=== PATIENT | female | born 1995 | race Caucasian/White ===

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

== ENCOUNTER → 2017-02-16 | Day surgery (SDC) | payer OTHER ==
[2017-02-12 14:17] VITALS: Ht 162.6 cm; Wt 55.9 kg
[~2017-02-16] VITALS: Ht 162.6 cm; Wt 55.9 kg
[~2017-02-16] MED LIST changes: +BUSP15TA70 PO; +ETON1IMP2 SC; +LIDOCAINE HCL 2% 2 ML VIAL (20MG/ML) ONE; -METH30CA PO; +METH60CA2 PO; +MIDAZOLAM HCL 1 MG/ML 2ML VIAL ONE; +ONDANSETRON INJ 2 MG/ML 2 ML VIAL ONE; -OXYC1TAB3 PO; +PROPOFOL IV EMULSION 10 MG/ML 20 ML VIAL IV ONE; +SODIUM CHLORIDE 0.9% 500ML 500 ML IV ONE
--- NOTE | 2017-02-16 14:50 | Endo History and Physical ---
History & Physical Date of Service: Feb 16, 2017. Chief Complaint: rectal bleeding,change in bowel habits Referring Physician: Dr. howard History of Present Illness 21 yo CF who presents for colonoscopy secondary to rectal bleeding and change in bowel habits. Past Surgical History Hx Cardiac Surgery: No Hx Internal Defibrillator: No Hx Pacemaker: No Hx Abdominal Surgery: No Hx of Implantable Prosthesis: No Hx Post-Op Nausea and Vomiting: No Hx Cancer Surgery: No Hx Thoracic Surgery: No Hx Orthopedic: No Hx Urinary Tract Surgery: No Family History IBD Social History Smoking Status: Never Smoker Hx Substance Use: No Hx Alcohol Use: No Allergies Coded Allergies: No Known Allergies (Verified , 02/16/17) Current Medications Reported Home Medications Medications Dose Route/Sig Max Daily Dose Days Date Category Dose Instructions Nexplanon (Etonogestrel) 68 Mg Imp 1 Dose SC CONTINOUS 02/12/17 Reported INSERTED IN LT UPPER ARM Methylphenidate HCl ER (Methylphenidate HCl) 60 Mg Cap 1 Cap PO QAM 02/12/17 Reported Buspar (Buspirone Hcl) 15 Mg Tab 15 Mg PO BID 12/03/16 Reported Klonopin (Clonazepam) 0.5 Mg Tab 0.5 Mg PO TID 09/25/16 Reported Cymbalta (Duloxetine HCl) 60 Mg Cap 120 Mg PO QPM 09/25/16 Reported Ritalin (Methylphenidate HCl) 20 Mg Tab 20 Mg PO AFTERNOON 04/09/16 Reported Vital Signs Weight (Kilograms): 55.91 Height (Feet): 5 Height (Inches): 4 Date Time Temp Pulse Resp B/P (MAP) Pulse Ox O2 Delivery O2 Flow Rate FiO2 02/16/17 14:20 36.9 81 16 122/80 (94) 100 Room Air Physical Exam General Appearance: WD/WN, no apparent distress Respiratory/Chest: Auscultation: breath sounds normal Cardiovascular: Heart Auscultation: RRR Abdomen: Bowel Sounds: normal Inspection & Palpation: soft, non-distended, no tenderness, guarding & rebound Assessment and Plan Assessment: 21 yo CF who presents for colonoscopy secondary to rectal bleeding and change in bowel habits. Plan: Proceed with colonoscopy.
--- NOTE | 2017-02-16 15:41 | Discharge Instructions ---
Endoscopy Patient Instructions Date / Procedure(s) Performed Feb 16, 2017. Colonoscopy Allergy Information Coded Allergies: No Known Allergies (Verified , 02/16/17) Discharge Date / Findings Feb 16, 2017. Internal hemorrhoids Medication Instructions OK to resume all medications today as prescribed Reported Home Medications Medications Dose Route/Sig Max Daily Dose Days Date Category Dose Instructions Nexplanon (Etonogestrel) 68 Mg Imp 1 Dose SC CONTINOUS 02/12/17 Reported INSERTED IN LT UPPER ARM Methylphenidate HCl ER (Methylphenidate HCl) 60 Mg Cap 1 Cap PO QAM 02/12/17 Reported Buspar (Buspirone Hcl) 15 Mg Tab 15 Mg PO BID 12/03/16 Reported Klonopin (Clonazepam) 0.5 Mg Tab 0.5 Mg PO TID 09/25/16 Reported Cymbalta (Duloxetine HCl) 60 Mg Cap 120 Mg PO QPM 09/25/16 Reported Ritalin (Methylphenidate HCl) 20 Mg Tab 20 Mg PO AFTERNOON 04/09/16 Reported Provider Instructions Activity Restrictions - No exercising or heavy lifting for 24 hours. - Do not drink alcohol the day of the procedure. - Do not drive a car or operate machinery until the day after the procedure. - Do not make any important decisions or sign important papers in 24 hours after the procedure. Following Day: - Return to full activity which may include returning to work/school. Diet Start your diet with liquids and light foods (jello, soup, juice, toast). Then eat your usual diet if not nauseated. Treatment For Common After Affects For mild abdominal pain, bloating, or excessive gas: - Rest - Eat lightly - Lie on right side Follow-Up Information Follow-up with Dr. howard as scheduled Anesthesia Information What You Should Know You have had a procedure that required some medicine to reduce anxiety and discomfort. This treatment is called moderate sedation. After receiving the treatment, you may be sleepy, but you will be able to breathe on your own. The effects of the treatment may last for several hours. Follow these instructions along with Activity/Diet recommendations noted above: * Do NOT do anything where dizziness or clumsiness would be dangerous. * Rest quietly at home today, then you can be up and about tomorrow. * Have a responsible person stay with you the rest of today. * You may have had an I.V. today. If so, you may take the dressing off later today. Recommendations Call your doctor if: * Trouble breathing * Continuous vomiting for more than 24 hours * Temperature above 101 degrees * Severe abdominal pain or bloating * Pain not relieved by pain medicine ordered * There is increased drainage or redness from any incision * A large amount of rectal bleeding greater than 2-3 tablespoons. (If you had a polyp/s removed or have hemorrhoids, a small amount of blood - from the rectum is to be expected.) * You have any unanswered questions or concerns. IN THE EVENT OF A SERIOUS EMERGENCY, GO TO THE NEAREST EMERGENCY ROOM Your discharge instructions were prepared by provider Rudy Neves. Patient Instructions Signature Page Roslyn Terry Patient (or Guardian) Signature/Date: I have read and understand the instructions given to me by my caregivers. Caregiver/RN/Doctor Signature/Date: The above-named patient and/or guardian has received patient instructions on this date. + Original Patient Signature Page (only) stays with chart. Please make copy for patient.
--- NOTE | 2017-02-16 15:44 | GI REPORT ---
Procedure Date: 02/16/2017 3:18 PM Procedure: Colonoscopy Indications: Rectal bleeding, Change in bowel habits Medicines: Monitored Anesthesia Care Complications: No immediate complications. Estimated Blood Loss: Estimated blood loss: none. Procedure: Pre-Anesthesia Assessment: - Prior to the procedure, a History and Physical was performed, and patient medications and allergies were reviewed. The patient's tolerance of previous anesthesia was also reviewed. The risks and benefits of the procedure and the sedation options and risks were discussed with the patient. All questions were answered, and informed consent was obtained. Prior Anticoagulants: The patient has taken no previous anticoagulant or antiplatelet agents. ASA Grade Assessment: II - A patient with mild systemic disease. After reviewing the risks and benefits, the patient was deemed in satisfactory condition to undergo the procedure. After I obtained informed consent, the scope was passed under direct vision. Throughout the procedure, the patient's blood pressure, pulse, and oxygen saturations were monitored continuously. The scope was introduced through the anus and advanced to the terminal ileum. The colonoscopy was performed without difficulty. The patient tolerated the procedure well. The quality of the bowel preparation was good. The ileocecal valve, appendiceal orifice, and rectum were photographed. Findings: The perianal and digital rectal examinations were normal. Non-bleeding internal hemorrhoids were found during retroflexion. The hemorrhoids were small. Impression: - Non-bleeding internal hemorrhoids. - No specimens collected. Recommendation: - Resume previous diet. - Continue present medications. - Repeat colonoscopy at age 52 for surveillance. - Return to primary care physician as previously scheduled. Rudy Neves DO 02/16/2017 3:43:59 PM This report has been signed electronically. Note Initiated On: 02/16/2017 3:18 PM I attest to the content of the Intraoperative Record and orders documented therein, exceptions below
--- NOTE | 2017-02-16 16:02 | Anesthesiology Progress Note ---
Anesthesia Post Op Note Date & Time Feb 16, 2017 at 16:01 Vital Signs Pain Intensity: 6 Vital Signs Past 12 Hours Date Time Temp Pulse Resp B/P (MAP) Pulse Ox O2 Delivery O2 Flow Rate FiO2 02/16/17 14:20 36.9 81 16 122/80 (94) 100 Room Air Notes Mental Status: alert / awake / arousable, participated in evaluation Pt Amnestic to Procedure: Yes Nausea / Vomiting: adequately controlled Pain: adequately controlled Airway Patency, RR, SpO2: stable & adequate BP & HR: stable & adequate Hydration State: stable & adequate Anesthetic Complications: no major complications apparent
[2017-02-16 16:13] VITALS: BP 105/65; PULSE 70; O2SAT 100
== END | disposition home or self-care (01) ==
LOC: C.GI 13:54
PROVIDERS: ATTEND Internal Medicine
DX: K64.8 Other hemorrhoids (principal); Z79.899 Other long term (current) drug therapy

== ENCOUNTER → 2017-02-17 | Outpatient (CLI) | payer OTHER ==
[~2017-02-17] MED LIST changes: -LIDOCAINE HCL 2% 2 ML VIAL (20MG/ML) ONE; -MIDAZOLAM HCL 1 MG/ML 2ML VIAL ONE; -ONDANSETRON INJ 2 MG/ML 2 ML VIAL ONE; -PROPOFOL IV EMULSION 10 MG/ML 20 ML VIAL IV ONE; -SODIUM CHLORIDE 0.9% 500ML 500 ML IV ONE
--- NOTE | 2017-02-17 17:33 | DIAGNOSTIC IMAGING REPORT ---
ABDOMEN 2VIEW W/PA CHEST RTN CLINICAL HISTORY: 21 years-old Female presenting with ABD PAIN. TECHNIQUE: PA view of the chest and supine and upright views of the abdomen were obtained. COMPARISON: CT from 12/03/2016 and chest x-ray from 09/04/2014. FINDINGS: Cardiomediastinal silhouette normal. Lungs and pleural spaces clear. Mild stool burden throughout the colon. No bowel obstruction. No gross pneumoperitoneum. No calcifications to suggest nephrolithiasis. Few small calcifications in the pelvis likely phleboliths as seen on prior CT. Osseous structures normal. IMPRESSION: 1. No acute cardiopulmonary disease. 2. No radiographic evidence of acute intra-abdominal pathology. Electronically signed by: Rayray Helton M.D. 02/17/2017 5:31 PM Dictated Date/Time: 02/17/2017 5:30 PM
== END | disposition home or self-care (01) ==
LOC: C.RAD 16:44
PROVIDERS: ATTEND Internal Medicine
DX: R10.9 Unspecified abdominal pain (principal)

== ENCOUNTER → 2017-06-11 | Outpatient (CLI) | payer OTHER ==
[2017-06-11 12:37] LABS: BASO % 0.5 %; BASO ABS # 0.03 K/uL (0-0.2); EOS % 1.7 %; EOS ABS # 0.11 K/uL (0-0.5); HEMATOCRIT 37.1 % (37-47); HEMOGLOBIN 12.9 g/dL (12.0-16.0); IG# 0.01 K/uL (0.00-0.02); LYMPH % 38.5 %; LYMPH ABS # 2.54 K/uL (1.2-3.4); MEAN CELL VOLUME 81.2 fL (80-100); MEAN CORPUSCULAR HEMOGLOBIN 28.2 pg (25-34); MEAN CORPUSCULAR HGB CONC 34.8 g/dl (32-36); MEAN PLATELET VOLUME 10.3 fL (7.4-10.4); MONO % 8.6 %; MONO ABS # 0.57 K/uL (0.11-0.59); NEUT % 50.5 %; NEUT ABS # 3.34 K/uL (1.4-6.5); PLATELET COUNT 241 K/uL (130-400); RED CELL DISTRIBUTION WIDTH CV 12.9 % (11.5-14.5); RED CELL DISTRIBUTION WIDTH SD 37.8 fL (36.4-46.3)
[2017-06-11 18:33] LABS: ALBUMIN 3.9 gm/dl (3.4-5.0); ALT/SGPT 17 U/L (12-78); AST/SGOT 11 U/L (15-37); BLOOD UREA NITROGEN 13 mg/dl (7-18); CALCIUM 9.1 mg/dl (8.5-10.1); CARBON DIOXIDE 29 mmol/L (21-32); CHOLESTEROL 136 mg/dl (0-200); CREATININE 0.78 mg/dl (0.60-1.20); GLUCOSE 93 mg/dl (70-99); GLUCOSE,FASTING 93 mg/dl (70-99); POTASSIUM 3.7 mmol/L (3.5-5.1); SODIUM 139 mmol/L (136-145); TOTAL PROTEIN 7.3 gm/dl (6.4-8.2)
[2017-06-11 18:41] LABS: ALKALINE PHOSPHATASE 66 U/L (45-117); LDL CHOLESTEROL CALCULATED 54 mg/dl
== END | disposition home or self-care (01) ==
LOC: C.LABBFT 11:26
PROVIDERS: ATTEND Psychiatry & Neurology Psychiatry
DX: Z79.899 Other long term (current) drug therapy (principal); Z13.6 Encounter for screening for cardiovascular disorders; K59.09 Other constipation